=== PATIENT | female | born 1965 | race Caucasian/White ===

== ENCOUNTER 2025-01-29 10:29 | Outpatient (REF) | payer OTHER, SELFPAY ==
--- OUTSIDE RECORDS SUMMARY | 2025-01-29 11:36 | XMS_ITS | Encounter Summary ---
Author Organization [employer] Address [address] [facility] [address] [place] [address] Care Team Providers Care Lean Specialist Name Role Phone Ralph Atwood MD Primary Care Prov ider Reason for Visit * Reason Onset Date Comments Med Refill 10/10/2024 Encounter Details Date Type Department Care Team ([facility] st Contact Info) Description 10/10/2024 Refill [facility] [address] [place] [address] Ralph Atwood MD [address] [place] [address] Primary hypertension Social History Tobacco Use Types Packs/Day Years Used Date Smoking Tobacco: Never Passive Smoke Exposure: Never Smokeless Tobacco: Never Alcohol Use Standard Drinks/Week Comments Never 0 (1 standard drink = 0.6 oz pur e alcohol) Depression Answer Date Recorded Patient Health Questionnaire-9 Score 0 11/19/2022 Housing Stability Answer Date Recorded What is your housing situation today? I have beverly escalera 06/21/[address] you li ve. Do you have problems with any of the following? None of the above 06/21/2023 Food Insecurity Answer Date Recorded Within the past 12 months, y ou worried that your food would run out before you got money to buy more: Never True 06/21/2023 Within the past 12 months,th e food you bought just didn't last and you didn't have enough money to get more: Never True Transportation Answer Date Recorded In the past 12 months, has l ack of transportation kept you from medical appts, meetings, work or from getting things needed for daily living? No 06/21/2023 Utilities Answer Date Recorded In the past 12 months, has t he electric, gas, oil or water company threatened to shut off services in your home? No 06/21/2023 Depression Answer Date Recorded Patient Health Questionnaire-2 Score 0 11/19/2022 Comments No Sex and Gender Information Value Date Recorded Sex Assigned at Female 06/29/2022 10:37 AM EDT Legal Sex Female 10:37 AM EDT Gender Identity Female 06/29/2022 10:37 AM EDT Sexual Orientation Choose not to disclose 2021 10:37 AM EDT documented as of this encounter Plan of Treatment Upcoming Encounters Date Type Department Care Team ([facility] st Contact Info) Description 04/17/2025 3:30 PM EDT Telemedicine [facility] [address] [place] [address] Ralph Atwood MD [address] [place] [address] documented as of this encounter Visit Diagnoses Diagnosis Primary hypertension Unspecified essential hypertension documented in this encounter Additional Health Concerns Assessment Noted Time PHQ-9 Depression Total Score: 0 11/20/19 23 2:47 PM EDT documented as of this encounter Care Teams Lean Specialist Relationship Specialty Start Date End Date Ralph Atwood MD [address] [place] [address] PCP - General Internal Medicine 09/17/20 documented as of this encounter
[2025-01-29 14:17] LABS: Appearance Urine Cloudy; Color Urine Yellow; Glucose Urine UA Negative (Negative); Leukocyte Esterase Urine Large (3+) (Negative); Nitrite Urine Positive (Negative); PH 6.5 (5.0-9.0); UMIC TRIGGER UACC YES; Urine Blood Trace (Negative); Urine Ketones Negative (Negative); Urine Protein Negative (Neg-Trace)
[2025-01-29 14:19] LABS: MANUAL DIFF FLAG NO
[2025-01-29 14:25] LABS: Bacteria Urine 4+ (None Seen); Hyaline Casts Urine 0-2 /LPF (0-2); RBC Urine 0-2 /HPF (0-2); Squamous Epithelial Cell Urine 0-2 /HPF (0-2); UACC Culture Trigger YES; WBC Urine >50 /HPF (0-5)
[2025-01-29 14:30] LABS: Basophils Absolute Auto 0.1 X10*3/uL (0.0-0.2); Basophils Percent Auto 0.4 % (0-2); Eosinophils Absolute Auto 0.1 X10*3/uL (0.0-0.4); Hematocrit 40.8 % (37.0-47.0); Hemoglobin 13.1 g/dl (12.0-16.0); Imm Gran Abs Auto 0.06 X10*3/uL (0.00-0.03); Imm Gran Pct Auto 0.4 % (0.0-0.4); Lymphocytes Absolute Auto 3.3 X10*3/uL (1.2-4.9); Lymphocytes Percent Auto 23.5 % (20-40); Mean Corpuscular HGB Conc 32.1 g/dl (31.0-35.0); Mean Corpuscular Hemoglobin 29.6 pg (27.0-33.0); Mean Corpuscular Volume 92.3 fL (80.0-98.0); Mean Platelet Volume 11.8 fL (9.4-12.3); Monocytes Absolute Auto 0.8 X10*3/uL (0.1-1.2); Neutrophils Absolute Auto 9.6 x10*3/uL (2.0-8.3); Neutrophils Percent Auto 68.7 % (45-73); Platelet Count 206 X10*3/uL (160-400); Red Blood Count 4.42 X10*6/uL (4.20-5.50); Red Cell Distribution Width 13.5 % (11.0-16.0); White Blood Count 13.9 X10*3/uL (4.8-10.8)
[2025-01-29 14:57] LABS: Alanine Aminotransferase 21 U/L (0-31); Albumin Level 4.2 g/dL (3.5-5.0); Alkaline Phosphatase 72 U/L (39-117); Anion Gap 11 (12-20); Aspartate Amino Transferase 25 U/L (5-31); Bilirubin Total 0.6 mg/dL (0.0-1.0); Blood Urea Nitrogen 19 mg/dL (9-16); Calcium 9.9 mg/dL (8.4-10.2); Carbon Dioxide 28 mmol/L (22-29); Chloride 106 mmol/L (96-108); Cholesterol 267 mg/dL (<200); Estimated Glomerular Filt Rate > 60; Glucose Random 90 mg/dL (60-115); HDL Cholesterol 69 mg/dL (>40); LDL Cholesterol Calculated 181 mg/dL (<100); Potassium 4.2 mmol/L (3.3-5.1); Sodium 141 mmol/L (135-145); Total Protein 7.4 g/dL (6.5-8.0); Triglycerides 88 mg/dL (<150)
[2025-01-29 16:02] LABS: TSH reflex Free T4 0.87 uIU/mL (0.32-4.0)
== END 2025-01-29 10:30 | disposition home or self-care (01) ==
LOC: HO.CHCLDS 10:29
PROVIDERS: Visit Provider Internal Medicine
DX: I10 Essential (primary) hypertension (principal)
CPT/HCPCS: 36415; 80053; 80061; 81001; 84443; 85025; 87086; 87088; 87186

== ENCOUNTER 2025-02-27 15:41 | Outpatient (REF) | payer MEDICAID, SELFPAY ==
--- NOTE | ~2025-02-27 | XR_ITS ---
EXAMINATION: XR HIP, LEFT CLINICAL INFORMATION: left hip pain COMPARISON: None available. TECHNIQUE: Two views of the left hip. FINDINGS: No fracture. Alignment is anatomic. Hip joint space is maintained. Soft tissues are unremarkable. Mild degenerative irregularity pubic symphysis joint is present. XR/XR hip LT min 2V IMPRESSION: Normal left hip. Electronically signed by: Giovanni Rg MD 02/27/2025 04:41 PM EDT
--- OUTSIDE RECORDS SUMMARY | 2025-02-27 16:18 | XMS_ITS | Encounter Summary ---
Author Organization [employer] Address [address] [facility] [address] [place] [address] Care Team Providers Care Grind Operator Name Role Phone Ralph Atwood MD Primary Care Prov ider Reason for Visit * Reason Onset Date Comments Med Refill 10/10/2024 Encounter Details Date Type Department Care Team ([facility] st Contact Info) Description 10/10/2024 Refill [facility] [address] [place] [address] Ralph Atwood MD [address] [place] [address] Primary hypertension Social History Tobacco Use Types [...] Upcoming Encounters Date Type Department Care Team (Late st Contact Info) Description 04/23/2025 1:30 PM EDT Telemedicine [facility] MED [facility] PEDS [address] [place] [address] Ralph Atwood MD [address] [place] [address] 05/21/2025 1:45 PM EDT Procedure Visit [facility] [address] [place], [place] [phone] Aleah Herrera CNM [address] [place] [address] documented as of this encounter Visit Diagnoses Diagnosis Primary hypertension Unspecified essential hypertension documented in this encounter Additional Health Concerns Assessment Noted Time PHQ-9 Depression Total Score: 0 11/20/19 23 2:47 PM EDT documented as of this encounter Care Teams Grind Operator Relationship Specialty Start Date End Date Ralph Atwood MD [address] [place] [address] PCP - General Internal Medicine 09/17/20 documented as of this encounter
--- OUTSIDE RECORDS SUMMARY | 2025-02-27 16:19 | XMS_ITS | Clinical Summary ---
Author Organization [facility] Address [address] [place] [address] Phone Care Team Providers Care Cross Cut Saw Operator Name Role Phone Ralph Atwood Primary Care Provide r Allergies No known active allergies Medications cephalexin (KEFLEX) 500 mg capsule Take 1 capsule (500 mg total) by mouth 4 (four) times a day for 10 days. 40 each 02/01/2025 02/12/20 25 fluconazole (DIFLUCAN) 150 mg tablet Take 1 tablet (150 mg total) by mouth 1 (one) time for 1 dose. 1 tablet 02/01/2025 02/02/20 25 phenazopyridine (PYRIDIUM) 200 mg tablet Take 1 tablet (200 mg total) by mouth 3 (three) times a day after meals for 2 days. 6 tablet 02/01/2025 02/04/20 25 Encounters Date Type Department Care Team Description 02/01/2025 3:40 AM EDT - 02/01/2025 5:18 AM EDT Emergency [facility] Emergency [address] [place] [address] Emilee Guerra MD Urinary tract infection without hematuria, site unspecified (Primary Dx) Discharge Disposition: Home or Self Care from Last 3 Months Medical History Medical History Date Comments HTN (hypertension) Social History Tobacco Use Types Packs/Day Years Used Date Smoking Tobacco: Never Assessed Comments Unknown Sex and Gender Information Value Date Recorded Sex Assigned at Not on file Legal Sex Female 12:54 PM EST Gender Identity Not on file Sexual Orientation Not on file Obstetrics History Last Filed Vital Signs Vital Sign Reading Time Taken Comments Blood Pressure 150/72 02/01/2025 1:59 AM EDT Pulse 66 02/01/2025 1:59 AM EDT Temperature 36.7 C (98.1 F) 02/01/2025 1:59 AM EDT Respiratory Rate 16 02/01/2025 1:59 AM EDT Oxygen Saturation 98% 02/01/2025 1:59 AM EDT Inhaled Oxygen Concentration - - Weight 70.8 kg (156 lb) 01/31/2025 10:44 PM EDT Height 165.1 cm (5' 5 ) 01/31/2025 10:44 PM EDT Body Mass Index 25.96 01/31/2025 10:44 PM EDT Plan of Treatment Health Maintenance Due Date Last Done Comments DTaP,Tdap,and Td Vaccines (1 - Tdap) 1983 Cervical Cancer Screening: P ap Smear 1985 Pneumococcal Vaccine: 50+ Years (1 of 1 - PCV) 2014 Zoster Vaccines (1 of 2) 2014 Colorectal Cancer Screening: Colonoscopy 07/28/2022 Social Influencers of Health Screening 07/28/2022 Breast Cancer Screening 10/18/2023 10/18/2021 Depression Screening 11/20/2023 11/19/2022 COVID-19 Vaccine ( - 2023-2 5 season) 2024 Influenza Vaccine (Season Ended) 2025 Hypertension/CHF/CAD Annual BMP Blood Test 01/31/2026 01/31/2025, 01/29/2025 Cholesterol Screening (Lipid Panel) 01/29/2030 01/29/2025 RSV Immunization Adult Patients (1 - 1-dose 75+ series) 2039 HIV Screening Completed 10/02/2020 Hepatitis C Screening Completed 06/21/2023 HIB Vaccines Aged Out No longer eligi ble based on patient's age to complete this topic HPV Vaccines Aged Out No longer eligi ble based on patient's age to complete this topic Hepatitis A Vaccines Aged Out No long er eligible based on patient's age to complete this topic Hepatitis B Vaccines Aged Out No long er eligible based on patient's age to complete this topic IPV Vaccines Aged Out No longer eligi ble based on patient's age to complete this topic MMR Vaccines Aged Out No longer eligi ble based on patient's age to complete this topic Meningococcal ACWY Vaccine Aged Out N o longer eligible based on patient's age to complete this topic Meningococcal B Vaccine Aged Out No l onger eligible based on patient's age to complete this topic Pneumococcal Vaccine: Pediatrics (0 to 5 Years) and At-Risk Patients (6 to 64 Years) Aged Out No longer eligible b ased on patient's age to complete this topic RSV Immunization Patients Under 20 months Aged Out No longer eligible b ased on patient's age to complete this topic Varicella Vaccines Aged Out No longer eligible based on patient's age to complete this topic Procedures Procedure Name Priority Date/Time Associated Diagnosis Comments FOFANA URINE CULTURE TUBE STAT 02/01/2025 4:02 AM EDT URINALYSIS WITH REFLEX MICROSCOPIC AND CULTURE STAT 02/01/2025 4:02 AM EDT URINALYSIS WITH REFLEX MICROSCOPIC AND CULTURE STAT 02/01/2025 4:02 AM EDT CULTURE URINE STAT 02/01/2025 4:02 AM EDT CBC WITH AUTO DIFFERENTIAL STAT 01/31/2025 10:51 PM EDT COMPREHENSIVE METABOLIC PANEL STAT 01/31/2025 10:51 PM EDT CBC AND DIFFERENTIAL STAT 01/31/2025 10:51 PM EDT from Last 3 Months Results * (ABNORMAL) Urinalysis with reflex microscopic and culture (02/01/2025 4:02 AM EDT) Specific [place] Urine 1.016 1.003 - 1.030 LAB URINALYSIS - AUTOMATED METHOD 02/01/2025 4:32 AM EDT [facility] pH, Urine 6.0 5.0 - 8.0 pH LAB URINALYSIS - AUTOMATED METHOD 02/01/2025 4:32 AM EDT [facility] Leukocytes, Urine Large(A) Negative LAB URINALYSIS - AUTOMATED METHOD 02/01/2025 4:32 AM [facility] Nitrite, Urine Positive(A) Negative LAB URINALYSIS - AUTOMATED METHOD 02/01/2025 4:32 AM [facility] Protein, Urine Negative <=Trace mg/dL LAB URINALYSIS - AUTOMATED METHOD 02/01/2025 4:32 AM [facility] Glucose, Urine Negative Negative mg/dL LAB URINALYSIS - AUTOMATED METHOD 02/01/2025 4:32 AM [facility] Ketones, Urine Negative Negative mg/dL LAB URINALYSIS - AUTOMATED METHOD 02/01/2025 4:32 AM [facility] Urobilinogen , Urine 0.2 0.2 - 1.0 mg/dL LAB URINALYSIS - AUTOMATED METHOD 02/01/2025 4:32 AM [facility] Bilirubin, Urine Negative Negative LAB URINALYSIS - AUTOMATED METHOD 02/01/2025 4:32 AM [facility] Blood, Urine Negative Negative LAB URINALYSIS - AUTOMATED METHOD 02/01/2025 4:32 AM [facility] RBC, Urine 2.6 0 - 4 /HPF LAB URINALYSIS - AUTOMATED METHOD 02/01/2025 4:32 AM [facility] WBC, Urine 195.2(H) 0 - 4 /HPF LAB URINALYSIS - AUTOMATED METHOD 02/01/2025 4:32 AM [facility] Squamous Epithelial, Urine 3 0 - 60 /LPF LAB URINALYSIS - AUTOMATED METHOD 02/01/2025 4:32 AM [facility] Bacteria, Urine Many(A) Negative /HPF LAB URINALYSIS - AUTOMATED METHOD 02/01/2025 4:32 AM [facility] Hyaline Casts, Urine 0.4 0 - 3 /LPF LAB URINALYSIS - AUTOMATED METHOD 02/01/2025 4:32 AM EDT [facility] Urine Urine specimen obtained by clean catch procedure / Unknown Non-blood Collection / Unknown 02/01/2025 4:02 AM EDT 02/01/2025 4:20 AM EDT Vincent Mar DO LAB URINE ORDERABLES Final Res ult Performing Organization Address [facility]/ZIP Co de Phone Number [facility] [address] [place] [address], [place] [phone] * Fofana urine culture tube (02/01/2025 4:02 AM EDT) Extra Tube Hold for add-ons. 02/01/2025 6:01 AM EDT [facility] Comment:Auto resulted. Urine Urine specimen obtained by clean catch procedure / Unknown Non-blood Collection / Unknown 02/01/2025 4:02 AM EDT 02/01/2025 4:20 AM EDT Vincent Mar DO LAB URINE ORDERABLES Final Res ult Performing Organization Address [facility]/RUST de Phone Number [facility] [address] [place] [address], [place] [phone] * (ABNORMAL) Culture urine (02/01/2025 4:02 AM EDT) Culture, Urine >100,000 CFU/mL Escherichia coli(A) MONIKA 02/03/2025 9:49 AM EDT [facility] Urine Urine specimen obtained by clean catch procedure / Unknown Non-blood Collection / Unknown 02/01/2025 4:02 AM EDT 02/01/2025 4:32 AM EDT Narrative Organism Antibiotic Method Susceptibility Escherichia coli Amoxicillin/Clavulanate MONIKA 16 ug/ml: Intermediate Escherichia coli Ampicillin/Sulbactam MONIKA 16 ug/ml: Intermediate Escherichia coli Piperacillin/Tazobactam MONIKA <=4 ug/ml: Susceptible Escherichia coli Cefazolin (Urine) MONIKA 4 ug/ml: Susceptible Escherichia coli Cefoxitin MONIKA <=4 ug/ml: Susceptible Escherichia coli Ceftazidime MONIKA <=0.5 ug/ml: Susceptible Escherichia coli Ceftriaxone MONIKA <=0.25 ug/ml: Susceptible Escherichia coli Cefepime MONIKA <=0.12 ug/ml: Susceptible Escherichia coli Meropenem MONIKA <=0.25 ug/ml: Susceptible Escherichia coli Amikacin MONIKA 2 ug/ml: Susceptible Escherichia coli Gentamicin MONIKA <=1 ug/ml: Susceptible Escherichia coli Ciprofloxacin MONIKA <=0.06 ug/ml: Susceptible Escherichia coli Levofloxacin MONIKA <=0.12 ug/ml: Susceptible Escherichia coli Nitrofurantoin MONIKA <=16 ug/ml: Susceptible Escherichia coli Trimethoprim/Sulfamethoxazole MONIKA <=20 ug/ml: Susceptible Vincent Mar DO LAB MICROBIOLOGY - GENERAL ORD ERABLES Final Result [facility] [address] [place] [address], * (ABNORMAL) CBC auto differential (01/31/2025 10:51 PM EDT) WBC 13.1(H) 4.8 - 10.8 K/mcL LAB HEMETOLOGY METHOD 01/31/2025 11:22 PM EDT [facility] RBC 4.10 3.80 - 4.80 M/mcL LAB HEMETOLOGY METHOD 01/31/2025 11:22 PM EDT [facility] Hemoglobin 12.0 11.5 - 16.0 g/dL LAB HEMETOLOGY METHOD 01/31/2025 11:22 PM EDT [facility] Hematocrit 37.4 35.0 - 47.0 % LAB HEMETOLOGY METHOD 01/31/2025 11:22 PM EDT [facility] MCV 92.3 79.0 - 98.0 FL LAB HEMETOLOGY METHOD 01/31/2025 11:22 PM EDT [facility] MCH 29.6 27.0 - 32.0 pcg LAB HEMETOLOGY METHOD 01/31/2025 11:22 PM [facility] MCHC 32.1 32.0 - 37.0 g/dL LAB HEMETOLOGY METHOD 01/31/2025 11:22 PM [facility] RDW 13.1 11.0 - 15.0 % LAB HEMETOLOGY METHOD 01/31/2025 11:22 PM [facility] Platelets 208 130 - 400 K/mcL LAB HEMETOLOGY METHOD 01/31/2025 11:22 PM [facility] MPV 10.8 7.0 - 11.0 FL LAB HEMETOLOGY METHOD 01/31/2025 11:22 PM [facility] NRBC 0.0 <1.0 % LAB HEMETOLOGY METHOD 01/31/2025 11:22 PM [facility] NRBC Absolute 0.00 <0.10 K/mcL LAB HEMETOLOGY METHOD 01/31/2025 11:22 PM [facility] Neutrophils Relative 59.0 % LAB HEMETOLOGY METHOD 01/31/2025 11:22 PM [facility] Lymphocytes Relative 32.5 % LAB HEMETOLOGY METHOD 01/31/2025 11:22 PM [facility] Monocytes Relative 6.3 % LAB HEMETOLOGY METHOD 01/31/2025 11:22 PM [facility] Eosinophils Relative 1.6 % LAB HEMETOLOGY METHOD 01/31/2025 11:22 PM [facility] Basophils Relative 0.4 % LAB HEMETOLOGY METHOD 01/31/2025 11:22 PM [facility] Immature Granulocytes Relative 0.2 % LAB HEMETOLOGY METHOD 01/31/2025 11:22 PM [facility] Neutrophils Absolute 7.74(H) 1.50 - 7.00 K/mcL LAB HEMETOLOGY METHOD 01/31/2025 11:22 PM EDT [facility] Lymphocytes Absolute 4.27 1.00 - 5.00 K/mcL LAB HEMETOLOGY METHOD 01/31/2025 11:22 PM EDT [facility] Monocytes Absolute 0.82 0.20 - 1.00 K/mcL LAB HEMETOLOGY METHOD 01/31/2025 11:22 PM EDT [facility] Eosinophils Absolute 0.21 0.00 - 0.50 K/[facility] LAB HEMETOLOGY METHOD 01/31/2025 11:22 PM EDT [facility] Basophils Absolute 0.05 0.00 - 0.20 K/[facility] LAB HEMETOLOGY METHOD 01/31/2025 11:22 PM EDT [facility] Immature Granulocytes Absolute 0.03 0.00 - 0.03 K/[facility] LAB HEMETOLOGY METHOD 01/31/2025 11:22 PM EDT [facility] Blood Venous blood specimen / Unknown Venipuncture / Unknown 01/31/2025 10:51 PM EDT 01/31/2025 11:21 PM EDT us Vincent Mar DO LAB BLOOD ORDERABLES Final Res ult [facility] [address] [place] [address], * (ABNORMAL) Comprehensive metabolic panel (01/31/2025 10:51 PM EDT) Sodium 142 133 - 145 mmol/L LAB CHEMISTRY METHOD 01/31/2025 11:29 PM EDT [facility] Potassium 4.2 3.5 - 5.5 mmol/L LAB CHEMISTRY METHOD 01/31/2025 11:29 PM EDT [facility] Chloride 110 96 - 110 mmol/L LAB CHEMISTRY METHOD 01/31/2025 11:29 PM [facility] CO2 28 21 - 32 mmol/L LAB CHEMISTRY METHOD 01/31/2025 11:29 PM [facility] Anion Gap 4 3 - 11 LAB CHEMISTRY METHOD 01/31/2025 11:29 PM [facility] Glucose 86 70 - 100 mg/dL LAB CHEMISTRY METHOD 01/31/2025 11:29 PM [facility] BUN 35(H) 5 - 25 mg/dL LAB CHEMISTRY METHOD 01/31/2025 11:29 PM [facility] Creatinine 0.99 0.50 - 1.10 mg/dL LAB CHEMISTRY METHOD 01/31/2025 11:29 PM [facility] eGFR 65 >=60 mL/min/1. 73m2 LAB CHEMISTRY METHOD 01/31/2025 11:29 PM [facility] Comment:Calculation based on the Chronic Kidney Disease Epidemiology Collaboration (CKD-EPI) equation refit without adjustment for race. BUN/Creatinine Ratio 35.4 LAB CHEMISTRY METHOD 01/31/2025 11:29 PM [facility] Calcium 9.4 8.5 - 10.5 mg/dL LAB CHEMISTRY METHOD 01/31/2025 11:29 PM [facility] AST (SGOT) 17 10 - 42 unit/L LAB CHEMISTRY METHOD 01/31/2025 11:29 PM [facility] ALT (SGPT) 22 10 - 60 unit/L LAB CHEMISTRY METHOD 01/31/2025 11:29 PM [facility] Alkaline Phosphatase 75 42 - 121 unit/L LAB CHEMISTRY METHOD 01/31/2025 11:29 PM [facility] Total Protein 6.8 6.0 - 8.0 g/dL LAB CHEMISTRY METHOD 01/31/2025 11:29 PM [facility] Albumin 3.6 3.2 - 5.0 g/dL LAB CHEMISTRY METHOD 01/31/2025 11:29 PM EDT [facility] Total Bilirubin 0.3 0.0 - 1.4 mg/dL LAB CHEMISTRY METHOD 01/31/2025 11:29 PM EDT [facility] Blood Venous blood specimen / Unknown Venipuncture / Unknown 01/31/2025 10:51 PM EDT 01/31/2025 10:58 PM EDT us Vincent Mar DO LAB BLOOD ORDERABLES Final Res ult [facility] [address] [place] [address], [place] [phone] from Last 3 [place] [id number] [facility] PUBLIC PLANS Care Teams Cross Cut Saw Operator Relationship Specialty Start Date End Date Ralph Atwood [address] [place], [place] [address] [place] [address] PCP - General Internal Medicine 02/01/25
--- OUTSIDE RECORDS SUMMARY | 2025-02-27 16:19 | XMS_ITS | Referral Summary ---
Author Organization [facility] Address [address] [place] [address] Care Team Providers Care Dental Instrument Maker Name Role Phone Ralph Atwood MD Primary Care Prov ider Allergies No known active allergies Medications No known medications Social History Tobacco Use Types Packs/Day Years Used Date Smoking Tobacco: Never Smokeless Tobacco: Never Alcohol Use Standard Drinks/Week Comments Never 0 (1 standard drink = 0.6 oz pur e alcohol) Comments Unknown Sex and Gender Information Value Date Recorded Sex Assigned at Not on file Legal Sex Female 2:47 PM EST Gender Identity Not on file Sexual Orientation Not on file Last Filed Vital Signs Vital Sign Reading Time Taken Comments Blood Pressure 103/68 02/06/2022 3:03 PM EDT Pulse 80 02/06/2022 3:08 PM EDT Temperature 36 C (96.8 F) 02/06/2022 3:08 PM EDT Respiratory Rate 16 02/06/2022 3:08 PM EDT Oxygen Saturation 100% 02/06/2022 3:08 PM EDT Inhaled Oxygen Concentration - - Weight 75 kg (165 lb 5.5 oz) 02/06/2022 12:58 PM EDT Height 162 cm (5' 3.78 ) 02/06/2022 12:58 PM EDT Body Mass Index 28.58 02/06/2022 12:58 PM EDT Plan of Treatment Not on file Procedures * Due to [place] [employer] law, this organization might not be sharing negative HIV tests. Procedure Name Priority Date/Time Associated Diagnosis Comments COLONOSCOPY 02/06/2022 from Last 3 Months or Most Recently Relevant to Health Maintenance Results * Due to [place] state law, this organization might not be sharing negative HIV tests. * COLONOSCOPY (02/06/2022) Narrative Procedure Note Nelson He MD - 02/06/2022 1:48 PM EDT Gastroenterology Patient Name: Brynn Simmons Procedure Date: 02/06/2022 1:48 PM Date of : 1965 Admit Type: Outpatient Age: 56 Room: Room 1 Gender: Female Note Status: Finalized Attending MD: Nelson He MD Procedure: Colonoscopy Indications: Screening for colorectal malignant neoplasm, This is the patient'sfirst colonoscopy Providers: Nelson He MD (Doctor), Dex Barr MD (Fellow) Referring MD: Ralph Wallace (Referring MD) Requesting Provider: Medicines: Monitored Anesthesia Care Complications: No immediate complications. Estimated Blood Loss: Estimated blood loss was minimal. Procedure: Pre-Anesthesia Assessment: - Prior to the procedure, a History and Physical was performed, and patient medications and allergies were reviewed. The patient is competent. The risks andbenefits of the procedure and the sedation options and riskswere discussed with the patient. All questions were answered and informed consent was obtained. Patientidentification and proposed procedure were verified by the physician,the nurse, the acetylene operator and the commercial maintenance technician in theprocedure room. Mental Status Examination: alert and oriented. Respiratory Examination: clear to auscultation. CV Examination: normal. Prophylactic Antibiotics: Thepatient does not require prophylactic antibiotics. Prior Anticoagulants: The patient has taken no previous anticoagulant or antiplatelet agents. ASA Grade Assessment: II - A patient with mild systemic disease. After reviewing the risks and benefits, the patient was deemed in satisfactory condition to undergo theprocedure. The anesthesia plan was to use monitored anesthesiacare (MAC). Immediately prior to administration ofmedications, the patient was re-assessed for adequacy to receive sedatives. The heart rate, respiratory rate, oxygen saturations, blood pressure, adequacy of pulmonary ventilation, and response to care were monitored throughout the procedure. The physical status of the patient was re-assessed after the procedure. After I obtained informed consent, the scope was passed under direct vision. Throughout the procedure, the patient's blood pressure, pulse, and oxygen saturations were monitored continuously. The [id number]-[id number] [id number] was introduced through the anus and advanced to the terminal ileum, with identification of theappendiceal orifice and IC valve. The colonoscopy was performed without difficulty. The patient tolerated the procedure well. The quality of the bowel preparation was adequateto identify polyps. Findings: The perianal and digital rectal examinations were normal. Non-bleeding internal hemorrhoids were found during retroflexion. The hemorrhoids were mild and small. Two sessile polyps were found in the sigmoid colon. The polyps were 4to 7 mm in size. These polyps were removed with a cold snare. Resectionand retrieval were complete. Estimated blood loss was minimal. The terminal ileum appeared normal. Impression: - Non-bleeding internal hemorrhoids. - Two 4 to 7 mm polyps in the sigmoid colon, removedwith a cold snare. Resected and retrieved. - The examined portion of the ileum was normal. Recommendation: - Discharge patient to home (ambulatory). - Await pathology results. - Repeat colonoscopy in 5 years for surveillance. Attending Participation: I was present and participated during the entire procedure, including non-tejada portions. Nelson He MD 02/06/2022 3:04:48 PM This report has been signed electronically. Dex Barr MD Number of Addenda: 0 Note Initiated On: 02/06/2022 1:48 PM Nelson He MD PROVATION PROCEDURES Final Res ult from Last 3 Months or Most Recently Relevant to Health Maintenance Insurance [facility] HS/FREE CARE Care Teams Dental Instrument Maker Relationship Specialty Start Date End Date Ralph Atwood MD [address] [place] [id number] PCP - General 09/22/21
== END 2025-02-27 15:42 | disposition home or self-care (01) ==
LOC: HO.HHCX 15:41
PROVIDERS: PCP Internal Medicine; Visit Provider Internal Medicine
DX: M25.552 Pain in left hip (principal)
CPT/HCPCS: 73502

== ENCOUNTER → 2025-02-27 15:48 | Outpatient (BNV) | payer MEDICAID, SELFPAY | PROVIDERS: PCP Internal Medicine; Visit Provider Radiology Diagnostic Radiology | DX: M25.552 Pain in left hip (principal) | CPT/HCPCS: 73502 ==